=== PATIENT | female | born 1955 | race Caucasian/White ===

== ENCOUNTER 2020-03-18 06:05 | Emergency (ER) | payer OTHER ==
[2020-03-18] MEDS ORDERED: ACETAMINOPHEN 1000 MG/100 ML VIAL (NON FORMULARY) IVPB ONE (06:16)
[2020-03-18 06:37] VITALS: BMI 18.8
[2020-03-18 06:48] LABS: BASO % 0.5 % (0-2.0); EOS % 0.2 % (0-4.5); HEMATOCRIT 34.2 % (32.4-45.2); HEMOGLOBIN 10.8 GM/dL (10.7-15.3); LYMPH % 7.1 % (8-40); MCH 24.8 pg (25.7-33.7); MCHC 31.5 g/dl (32.0-36.0); MEAN CELL VOLUME 78.8 fl (80-96); MEAN PLT VOLUME 8.1 fl (7.5-11.1); MONO % 4.2 % (3.8-10.2); PLATELET COUNT 334 K/MM3 (134-434); RBC 4.34 M/mm3 (3.60-5.2); RDW 16.4 % (11.6-15.6); WHITE BLOOD COUNT 21.4 K/mm3 (4.0-10.0)
--- NOTE | 2020-03-18 06:58 | PDOC ---
History of Present Illness - General Chief Complaint: Altered Mental Status Stated Complaint: FALL Time Seen by Provider: 03/18/20 06:56 - History of Present Illness Initial Comments: 03/18/20 06:59 64 F with h/o CAD, DM, HTN, dementia presenting to ED after being found down at home. Pt was last seen at 1AM watching TV. Is minimally conversant at baseline. This morning at approx 6am, pt was found on the floor shaking and unresponsive. Past History - Medical History Allergies/Adverse Reactions: Allergies Allergy/AdvReac Type Severity Reaction Status Date / Time No Known Allergies Allergy Verified 03/18/20 07:45 CVA: No COPD: No - Psycho-Social/Smoking History Smoking History: Unknown if ever smoked - Substance Abuse Hx (Audit-C & DAST Scrn) How often the patient has a drink containing alcohol: Never Score: In Men: 4 or > Positive; In Women: 3 or > Positive: 0 Screen Result (Pos requires Nsg. Audit-10AR): Negative Review of Systems - Review of Systems Able to Perform ROS?: No *Physical Exam - Vital Signs Last Vital Signs Temp Pulse Resp BP Pulse Ox 99.6 F 105 H 22 H 200/107 H 100 03/18/20 06:33 03/18/20 06:33 03/18/20 06:33 03/18/20 06:33 03/18/20 06:33 - Physical Exam 03/18/20 07:00 "GENERAL: no acute distress. HEAD: No signs of trauma EYES: PERRLA, EOMI, sclera anicteric, conjunctiva clear ENT: Auricles normal inspection, hearing grossly normal, nares patent, orophary nx clear without exudates. Moist mucosa NECK: Nontender, no stepoffs, Normal ROM, supple, no lymphadenopathy, JVD, or masses LUNGS: Breath sounds equal, clear to auscultation bilaterally. No wheezes, and no crackles HEART: Regular rate and rhythm, normal S1 and S2, no murmurs, rubs or gallops ABDOMEN: Soft, nontender, normoactive bowel sounds. No guarding, no rebound. No masses EXTREMITIES: Normal range of motion, no edema. No clubbing or cyanosis. No cords, erythema, or tenderness NEUROLOGICAL: moves all extremities SKIN: Warm, Dry, normal turgor, no rashes or lesions noted. ED Treatment Course - LABORATORY CBC & Chemistry Diagram: 03/18/20 06:24 03/18/20 06:24 - ADDITIONAL ORDERS Additional order review: 03/18/20 06:24 RBC 4.34 MCV 78.8 L MCHC 31.5 L RDW 16.4 H MPV 8.1 Neutrophils % 88.0 H Lymphocytes % 7.1 L Monocytes % 4.2 Eosinophils % 0.2 Basophils % 0.5 - RADIOLOGY Radiology Studies Ordered: Category Date Time Status CERVICAL SPINE CT W/O CONTR [CT] Stat CT Scan 03/18/20 06:[address] WITHOUT CONTRAST [CT] Stat CT Scan 03/18/20 06:16 Ordered CHEST X-RAY PORTABLE* [RAD] Stat Radiology 03/18/20 06:11 Ordered Medical Decision Making - Critical Care Time Total Critical Care Time (minutes): 30 Critical Care Statement: The care of this patient involved high complexity decision making to prevent further life threatening deterioration of the patient's condition and/or to evaluate & treat vital organ system(s) failure or risk of failure. - Medical Decision Making 03/18/20 07:02 64 F with AMS, rigoring on exam. Suspect sepsis. Will also need to evaluate for ICH as pt was found down. - Labs, cultures - CXR, UA - CT head/c-spine - IV tylenol Discharge - Discharge Information Problems reviewed: Yes Clinical Impression/Diagnosis: Brain bleed AMS (altered mental status) Qualifiers: Altered mental status type: unspecified Qualified Code(s): R41.82 - Altered mental status, unspecified Leukocytosis Qualifiers: Leukocytosis type: unspecified Qualified Code(s): D72.829 - Elevated white bl ood cell count, unspecified Renal failure Qualifiers: Renal failure chronicity: unspecified chronicity Qualified Code(s): N19 - Unspecified kidney failure Condition: Guarded Disposition: TRANSFER ACUTE CARE/OTHER HOSP - Follow up/Referral Referrals: Gabo Portillo MD [Primary Care Provider] - - Patient Discharge Instructions - Post Discharge Activity
[2020-03-18 07:00] LABS: INR 0.96 (0.83-1.09); PROTHROMBIN TIME (PATIENT) 11.3 SEC (9.7-13.0)
[2020-03-18 07:02] LABS: ACTIVATED PTT 26.9 SECONDS (25.2-36.5)
[2020-03-18 07:11] LABS: ALBUMIN 3.7 g/dl (3.4-5.0); ALK PHOS 153 U/L (45-117); ANION GAP 13 MMOL/L (8-16); BLOOD UREA NITROGEN 54.6 mg/dL (7-18); CALCIUM 9.8 mg/dL (8.5-10.1); CHLORIDE 106 mmol/L (98-107); CO2 18 mmol/L (21-32); CREATININE 3.1 mg/dL (0.55-1.3); POTASSIUM 3.9 mmol/L (3.5-5.1); SGOT/AST 13 U/L (15-37); SGPT/ALT 18 U/L (13-61); SODIUM 137 mmol/L (136-145); TOT PROT 7.4 g/dl (6.4-8.2)
[2020-03-18] MEDS ORDERED: CEFEPIME 2 GM in DEXTROSE 5%-WATER 100 ML IVPB ONE (07:37)
[2020-03-18] MEDS ORDERED: VANCOMYCIN 1 GRAM (PRE-DOCKED) 1,000 MG/250 ML BAG IVPB ONE (07:37)
[2020-03-18] MEDS ORDERED: LORazepam 2 MG/ML SDV VIAL IVPUSH ONE (07:43)
[2020-03-18] MEDS ORDERED: LORazepam 2 MG/ML SDV VIAL ONE (07:47)
--- NOTE | 2020-03-18 07:48 | PDOC ---
*Physical Exam - Vital Signs Last Vital Signs Temp Pulse Resp BP Pulse Ox 99.6 F 105 H 22 H 200/107 H 100 03/18/20 06:33 03/18/20 06:33 03/18/20 06:33 03/18/20 06:33 03/18/20 06:33 - Physical Exam General Appearance: Yes: Moderate Distress, Thin HEENT: positive: SAMUEL Neck: positive: Supple. negative: Rigid Respiratory/Chest: positive: Lungs Clear, Normal Breath Sounds. negative: Respiratory Distress, Labored Respiration, Rapid RR Cardiovascular: positive: Regular Rhythm, Regular Rate, S1, S2. negative: Edema, JVD Vascular Pulses: Dorsalis-Pedis (R): 2+, Doralis-Pedis (L): 2+ Gastrointestinal/Abdominal: positive: Soft. negative: Guarding, Rebound Rectal Exam: positive: normal exam. negative: decreased tone Musculoskeletal: positive: Normal Inspection. negative: CVA Tenderness, Vertebral Tenderness Extremity: positive: Normal Capillary Refill, Normal Inspection, Other (Decreased ROM about the left hip). negative: Normal Range of Motion Integumentary: positive: Normal Color, Dry, Warm Neurologic: positive: Respond to painful stimul, Confused, Disoriented. negativ e: Fully Oriented, Normal Mood/Affect ED Treatment Course - LABORATORY CBC & Chemistry Diagram: 03/18/20 06:24 03/18/20 06:24 - ADDITIONAL ORDERS Additional order review: Laboratory Results 03/18/20 03/18/20 06:24 06:24 PT with INR 11.30 INR 0.96 PTT (Actin FS) 26.9 Sodium 137 Potassium 3.9 Chloride 106 Carbon Dioxide 18 L Anion Gap 13 BUN 54.6 H Creatinine 3.1 H Est GFR (CKD-EPI)AfAm 17.56 Est GFR (CKD-EPI)NonAf 15.15 Calcium 9.8 Total Bilirubin 1.0 AST 13 L ALT 18 Alkaline Phosphatase 153 H Troponin I < 0.02 Total Protein 7.4 Albumin 3.7 03/18/20 06:24 RBC 4.34 MCV 78.8 L MCHC 31.5 L RDW 16.4 H MPV 8.1 Neutrophils % 88.0 H Lymphocytes % 7.1 L Monocytes % 4.2 Eosinophils % 0.2 Basophils % 0.5 - RADIOLOGY Radiology Studies Ordered: Category Date Time Status CHEST CT WITHOUT CONTRAST [CT] Stat CT Scan 03/18/20 07:[address] WITHOUT CONTRAST [CT] Stat CT Scan 03/18/20 07:36 Ordered Medical Decision Making - Medical Decision Making Patient signed out to me from night pending CT scan and Septic workup. - Patient was agitated in CT, sent back bc she would not stay still - She came back to the ER and we placed a 2nd line in her and sent off cultures, lactic, and vbg - Giving her 1 mg of lorazepam IV to calm her down to facilitate CT scan - On exam her right hip appears very tender and has decreased ROM. She moans when I try to move her right hip - Will obtain Pelvis CT to r/o hip Fx from fall vs dislocation Labs: - White count of 21 with left shift concerning for possible infection - Renal failure, unknown chronicity as no prior labs in [facility] Plan: - Abx broad spectrum - Vanc/Cefepime/Ampicillin - CT - Re-assess Head CT: Shows traumatic bleed. Dispo: Transfer over to [facility] - Accepting physician Dr. Beauchamp - Auto accepted into ER - Ambulance ETA 10:10 Discharge - Discharge Information Problems reviewed: Yes Clinical Impression/Diagnosis: Brain bleed AMS (altered mental status) Qualifiers: Altered mental status type: unspecified Qualified Code(s): R41.82 - Altered mental status, unspecified Leukocytosis Qualifiers: Leukocytosis type: unspecified Qualified Code(s): D72.829 - Elevated white blood cell count, unspecified Renal failure Qualifiers: Renal failure chronicity: unspecified chronicity Qualified Code(s): N19 - Unspecified kidney failure Condition: Guarded Disposition: TRANSFER ACUTE CARE/OTHER HOSP - Admission Yes - Follow up/Referral Referrals: Gabo Portillo MD [Primary Care Provider] - - Patient Discharge Instructions - Post Discharge Activity - Transfer to Acute Care Facility Receiving Facility Name: [facility] Accepting Physician:: Dr. Beauchamp
[2020-03-18] MEDS ORDERED: AMPICILLIN - 2 GM in SODIUM CHLORIDE 100 ML IVPB ONE (07:54)
[2020-03-18 07:59] LABS: GLUCOSE,RANDOM 437 mg/dL (74-106)
[2020-03-18 08:03] VITALS: TEMP 99.5
[2020-03-18 08:17] LABS: VENOUS BASE EXCESS -4.7 mmol/L (-2-2); VENOUS O2 SATURATION 30.1 % (70-80); VENOUS PCO2 29.8 mmHg (38-52); VENOUS PH 7.428 (7.310-7.410)
[2020-03-18 08:40] LABS: ANISOCYTOSIS 3+; MACROCYTOSIS 0; PLATELET ESTIMATE NORMAL
[2020-03-18] MEDS ORDERED: SODIUM CHLORIDE 0.9% 1000 ML INFUS.BAG IV ONE (08:59)
[2020-03-18] MEDS ORDERED: levETIRAcetam 500 MG/5 ML INJECTION VIAL IVPB ONE ×3 (09:09→09:10)
[2020-03-18] MEDS ORDERED: CEFEPIME 2 GM/100 ML BAG IVPB ONE (09:11)
[2020-03-18] MEDS ORDERED: NICARDIPINE 25 MG in DEXTROSE 5%-WATER - 240 ML IVPB SCH (09:45)
[2020-03-18 10:34] VITALS: BP 190/100; PULSE 98
--- NOTE | 2020-03-18 11:06 | PDOC ---
*Physical Exam - Vital Signs Last Vital Signs Temp Pulse Resp BP Pulse Ox 99.5 F 98 H 22 H 190/100 H 97 03/18/20 10:00 03/18/20 10:30 03/18/20 10:30 03/18/20 10:30 03/18/20 10:30 ED Treatment Course - LABORATORY CBC & Chemistry Diagram: 03/18/20 06:24 03/18/20 06:24 - ADDITIONAL ORDERS Additional order review: Laboratory Results 03/18/20 03/18/20 03/18/20 09:14 07:30 06:24 PT with INR INR PTT (Actin FS) VBG pH 7.428 H POC VBG pCO2 29.8 L POC VBG pO2 18.3 L VBG HCO3 19.2 L VBG O2 Sat (Ariana) 30.1 L VBG Base Excess -4.7 L Sodium Potassium Chloride Carbon Dioxide Anion Gap BUN Creatinine Est GFR (CKD-EPI)AfAm Est GFR (CKD-EPI)NonAf POC Glucometer 410 Random Glucose Lactic Acid 2.2 H* Calcium Total Bilirubin AST ALT Alkaline Phosphatase Troponin I Total Protein Albumin 03/18/20 03/18/20 06:24 06:24 PT with INR 11.30 INR 0.96 PTT (Actin FS) 26.9 VBG pH POC VBG pCO2 POC VBG pO2 VBG HCO3 VBG O2 Sat (Ariana) VBG Base Excess Sodium 137 Potassium 3.9 Chloride 106 Carbon Dioxide 18 L Anion Gap 13 BUN 54.6 H Creatinine 3.1 H Est GFR (CKD-EPI)AfAm 17.56 Est GFR (CKD-EPI)NonAf 15.15 POC Glucometer Random Glucose 437 H* Lactic Acid Calcium 9.8 Total Bilirubin 1.0 AST 13 L ALT 18 Alkaline Phosphatase 153 H Troponin I < 0.02 Total Protein 7.4 Albumin 3.7 03/18/20 03/18/20 09:14 06:24 RBC 4.34 MCV 78.8 L MCHC 31.5 L RDW 16.4 H MPV 8.1 Neutrophils % 88.0 H Lymphocytes % 7.1 L Monocytes % 4.2 Eosinophils % 0.2 Basophils % 0.5 POC Glucometer 410 - Medications Given in the ED: ED Medications Discontinued Medications Generic Name Dose Route Start Last Admin Trade Name Freq PRN Reason Stop Dose Admin Acetaminophen 1,000 mg 03/18/20 06:16 03/18/20 06:46 Ofirmev Injection - IVPB 03/18/20 06:17 1,000 mg ONCE ONE Administration Cefepime HCl 2 gm/ Dextrose 100 mls @ 100 mls/hr 03/18/20 07:37 03/18/20 09:05 IVPB 03/18/20 08:36 100 mls/hr ONCE ONE Administration Levetiracetam 1,000 mg 03/18/20 09:10 03/18/20 09:12 Keppra Injection - IVPB 03/18/20 09:11 1,000 mg ONCE ONE Administration Lorazepam 1 mg 03/18/20 07:43 03/18/20 07:50 Ativan Injection - IVPUSH 03/18/20 07:44 1 mg ONCE ONE Administration Lorazepam 1 mg 03/18/20 07:43 03/18/20 08:15 Ativan Injection - IVPUSH 03/18/20 07:44 Not Given ONCE ONE Sodium Chloride 500 ml 03/18/20 08:59 03/18/20 09:20 Normal Saline - IV 03/18/20 09:00 500 ml ONCE ONE Administration Medical Decision Making - Medical Decision Making 03/18/20 09:00 Care received at 7 AM Briefly, 64yo patient with MMP including CAD, hypertension, dementia, renal transplant presents with altered mental status x1 day as well as multiple falls. Found to be poorly responsive this AM by daughter Work-up thus far remarkable for leukocytosis, borderline febrile, and possibly rigoring on exam. Lactic 2.2, pt given 500cc fluids. Will hydrate gently given hx renal transplant, CKD. Covered empirically with vanc/cefepime Pt required sedation with ativan to obtain CTH CTH remarkable for acute ICH in L frontal lobe Pt brought back to department, placed on monitor, HOB 30 degrees BP upon return 130/99, however increased to 200/100 requiring cardene gtt Transfer initiated to [facility] (family preference) for trauma evaluation. Daughter and proxy Eneida consents to transfer Discharge - Discharge Information Problems reviewed: Yes Clinical Impression/Diagnosis: Brain bleed AMS (altered mental status) Qualifiers: Altered mental status type: unspecified Qualified Code(s): R41.82 - Altered mental status, unspecified Leukocytosis Qualifiers: Leukocytosis type: unspecified Qualified Code(s): D72.829 - Elevated white blood cell count, unspecified Renal failure Qualifiers: Renal failure chronicity: unspecified chronicity Qualified Code(s): N19 - Unspecified kidney failure Condition: Guarded Disposition: TRANSFER ACUTE CARE/OTHER HOSP - Follow up/Referral Referrals: Gabo Portillo MD [Primary Care Provider] - - Patient Discharge Instructions - Post Discharge Activity
--- NOTE | 2020-03-18 17:59 | EKG ---
Test Reason : Blood Pressure : / mmHG Vent. Rate : 087 BPM Atrial Rate : 087 BPM P-R Int : 186 ms QRS Dur : 086 ms QT Int : 384 ms P-R-T Axes : 071 071 089 degrees QTc Int : 462 ms POOR DATA QUALITY, INTERPRETATION MAY BE ADVERSELY AFFECTED NORMAL SINUS RHYTHM LEFT VENTRICULAR HYPERTROPHY NONSPECIFIC ST ABNORMALITY ABNORMAL ECG Confirmed by MD CANTU MOYSES ([id number]) on 03/18/2020 5:58:50 PM Referred By: Confirmed By:ELLA CANTU MD
== END 2020-03-18 10:35 | disposition short-term general hospital (02) ==
LOC: JER 06:05
PROC: 3E03329 Introduction of Other Anti-infective into Peripheral Vein, Percutaneous Approach (ICD-10-PCS; principal; 2020-03-18)
PROC: 3E033GC Introduction of Other Therapeutic Substance into Peripheral Vein, Percutaneous Approach (ICD-10-PCS; 2020-03-18)
DX: I61.9 Nontraumatic intracerebral hemorrhage, unspecified (principal); R41.82 Altered mental status, unspecified; N19 Unspecified kidney failure; D72.829 Elevated white blood cell count, unspecified
CPT/HCPCS: 36415; 70450-TC; 71045-TC-FY; 71250-TC; 72125-TC; 74176-TC; 80053; 82803; 82962; 83605; 84484; 85025; 85610; 85730; 87040; 87076; 93005; 93010; 99291; J0131